=== PATIENT | male | born 1980 | race Caucasian/White ===

== ENCOUNTER 2020-03-18 22:09 | Emergency (ER) | payer OTHER, SELFPAY ==
[2020-03-18 22:19] VITALS: BP 134/99; PULSE 87; RESP 18; TEMP 36.8; O2SAT 100
--- NOTE | 2020-03-18 22:40 | ED.GENADULT ---
HPI - General Adult General Chief complaint: Psychiatric Symptoms <Miriam Fisher MD - Last Filed: 03/20/20:29> Stated complaint: suicidal <Miriam Fisher MD - Last Filed: 03/20/20:> Time Seen by Provider: 03/18/20 22:14 <Miriam Fisher MD - Last Filed: 03/20/20:29> Source: patient <Miriam Fisher MD - Last Filed: 03/20/20:29> History of Present Illness HPI narrative: Patient is a 39 y/o male complaining of suicidal ideation for last 2 weeks. He states that he feels helpless. He is more stressed because his mother is very sick and he is in a custody buck. He admits that he was drinking earlier today. He has no suicidal plan at this time. <Miriam Fisher MD - Last Filed: 03/20/20:29> Related Data Home medications: Home Medications Medication Instructions Recorded Confirmed duloxetine 60 mg PO DAILY 03/18/20 <Miriam Fisher MD - Last Filed: 03/20/20 07:29> Allergies/adverse reactions: Allergies Allergy/AdvReac Type Severity Reaction Status Date / Time No Known Allergies Allergy Verified 03/18/20 22:43 <Miriam Fisher MD - Last Filed: 03/20/20 07:29> Review of Systems Constitutional: Constitutional: Denies chills, Denies fever(s), Denies headache(s) and Denies weakness <Miriam Fisher MD - Last Filed: 03/20/20 07:29> Eyes: Eyes: Denies blurry vision <Miriam Fisher MD - Last Filed: 03/20/20 07:29> ENT: Denies headache(s) and Denies neck pain <Miriam Fisher MD - Last Filed: 03/20/20:29> Cardiovascular: Cardiovascular: Denies chest pain and Denies dyspnea <Miriam Fisher MD - Last Filed: 03/20/20 07:29> Respiratory: Respiratory: Denies cough and Denies dyspnea <Miriam Fisher MD - Last Filed: 10/01/20 07:29> Gastrointestinal: Gastrointestinal: Reports abdominal pain, Denies diarrhea, Reports nausea and Denies vomiting <Miriam Fisher MD - Last Filed: 03/20/20:> Genitourinary: Genitourinary: Denies hematuria and Denies dysuria <Miriam Fisher MD - Last Filed: 03/20/20:29> Musculoskeletal: Musculoskeletal: Denies back pain and Denies neck pain <Miriam Fisher MD - Last Filed: 03/20/20:> Neurologic: Denies headache(s) and Denies weakness <Miriam Fisher MD - Last Filed: 03/20/20:> Psychiatric: Psychiatric: Reports as per HPI, Reports depression and Reports suicidal ideation <Miriam Fisher MD - Last Filed: 03/20/20:> [facility] Social History Social History: Social History Gender identity (if verbalized by the patient): Male <Miriam Fisher MD - Last Filed: 03/20/20:29> Exam Const: General: no acute distress and well developed <Miriam Fisher MD - Last Filed: 03/20/20:> Orientation/consciousness: oriented to person, oriented to place, oriented to time and patient oriented x3 <Miriam Fisher MD - Last Filed: 03/20/20:29> HENMT: Head: normocephalic <Miriam Fisher MD - Last Filed: 03/20/20:29> Ears: external ears normal <Miriam Fisher MD - Last Filed: 03/20/20:29> General nose exam: Normal external nose present <Miriam Fisher MD - Last Filed: 03/20/20:> Eyes: General: appearance normal, both eyes and all related structures <Miriam Fisher MD - Last Filed: 03/20/20:29> Conjunctivae: conjunctivae normal <Miriam Fisher MD - Last Filed: 03/20/20:29> Neck: Neck: normal visual inspection and full ROM <Miriam Fisher MD - Last Filed: 03/20/20 07:29> Chest: Chest palpation & inspection: normal inspection of the chest and no tenderness <Miriam Fisher MD - Last Filed: 03/20/20 07:29> Resp: Effort & Inspection: normal respiratory effort <Miriam Fisher MD - Last Filed: 03/20/20 07:29> Auscultation: clear to auscultation bilaterally <Miriam Fisher MD - Last Filed: 03/20/20 07:29> Cardio: Rate: regular rate <Miriam Fisher MD - Last Filed: 03/20/20 07:29> Rhythm: regular rhythm <Miriam Fisher MD - Last Filed
--- NOTE | 2020-03-18 22:41 | PC.NURSE ---
Patient moved from room 5 to room 14 Report to Dalton ORDAZ
[2020-03-18 22:43] LABS: Basophils Percent Auto 0.6 % (0.2-1.2); Eosinophils Absolute Auto 0.1 K/mm3 (0-0.3); Hematocrit 48.7 % (42.0-52.0); Hemoglobin 16.8 g/dL (14.0-18.0); Immature Granulocyte Absolute 0.04 K/mm3 (0.00-0.031); Immature Granulocyte Percent A 0.6 % (0-0.5); Lymphocytes Absolute Auto 3.84 K/mm3 (0.9-3.2); Lymphocytes Percent Auto 54.6 % (18.3-44.2); Mean Corpuscular HGB Conc 34.5 g/dl (32-36); Mean Corpuscular Hemoglobin 29.4 pg (26-34); Mean Corpuscular Volume 85.1 fl (80-100); Mean Platelet Volume 8.7 fl (7.4-10.4); Monocytes Absolute Auto 0.5 K/mm3 (0.1-0.6); Monocytes Percent Auto 7.7 % (2.6-8.5); Neutrophils Absolute Auto 2.4 K/mm3 (1.3-6.7); Neutrophils Percent Auto 34.5 % (45.5-73.1); Platelet Count Result 310 k/mm3 (150-375); Red Blood Count 5.72 M/mm3 (4.6-6.20); Red Cell Distribution Width 12.4 % (11.5-14.5)
[2020-03-18 22:46] LABS: Add Urine Microscopic? YES; Appearance Urine Clear (Clear); Bacteria Urine Trace /hpf; Bilirubin Urine Negative (Negative); Blood Urine 1+ (Negative); Color Urine Straw (Yellow); Glucose Urine UA Negative (Negative); Ketones Urine Negative (Negative); Leukocyte Esterase Ur Negative LEU/UL (Negative); Nitrate Urine Negative (Negative); Protein Urine Negative (Negative); RBC Urine 0-2 /hpf (0-2); Squamous Epithelial Cell Urine Rare /hpf (Few); Urobilinogen Urine Negative mg/dL (<2.0); WBC Urine 0-3 /hpf
[2020-03-18] MEDS: ONDANSETRON HCL ODT 4 MG TABLET PO (22:49)
[2020-03-18 22:54] LABS: Ethanol 168 mg/dL (<10)
[2020-03-18 22:55] LABS: Alanine Aminotransferase 28 U/L (4-50); Alkaline Phosphatase 74 U/L (38-126); Anion Gap 15 mmol/L (8-16); Aspartate Amino Transferase 40 U/L (17-59); Bilirubin,Total 0.6 mg/dL (0.2-1.3); Blood Urea Nitrogen 9 mg/dL (9-20); Carbon Dioxide 24 mmol/L (22-30); Chloride 106 mmol/L (98-107); Estimated CRCL calculation 115 ml/min; Estimated Glomerular Filt Rate > 60; Glucose 88 mg/dL (75-110); Potassium 4.1 mmol/L (3.4-5.0); Sodium 145 mmol/L (137-145)
[2020-03-18 23:00] LABS: Amphetamine Screen Urine Negative (Negative); Barbiturate Screen Urine Negative (Negative); Benzodiazepines Screen Urine Negative (Negative); Cannabinoid Screen Urine Positive (Negative); Cocaine Screen Urine Negative (Negative); Methadone Screen Urine Negative (Negative); Opiate Screen Urine Negative (Negative); Phencyclidine Screen Urine Negative (Negative)
[2020-03-18 23:42] LABS: Lipase 823 U/L (23-300)
[2020-03-19 05:06] LABS: Ethanol 11 mg/dL (<10)
[2020-03-19 06:14] VITALS: BP 124/86; PULSE 78; RESP 16; TEMP 36.7; O2SAT 100
[2020-03-19 11:24] VITALS: BP 114/79; PULSE 86; RESP 12; TEMP 36.9; O2SAT 96
[2020-03-19 14:55] VITALS: BP 122/80; PULSE 80; RESP 18; TEMP 36.7; O2SAT 99
== END 2020-03-19 15:00 | disposition home or self-care (01) ==
PROVIDERS: Emergency Medicine; Emergency Provider Emergency Medicine
DX: R45.851 Suicidal ideations (principal); F10.129 Alcohol abuse with intoxication, unspecified; Y90.6 Blood alcohol level of 120-199 mg/100 ml
CPT/HCPCS: 36415; 80053; 80307; 81001; 83690; 84443; 85025; 99284; A9270

== ENCOUNTER 2021-08-09 08:09 | Emergency (ER) | payer OTHER, SELFPAY ==
[2021-08-09 08:12] VITALS: BP 156/96; PULSE 74; RESP 16; TEMP 36.6; O2SAT 100
--- NOTE | 2021-08-09 08:38 | ED.GENADULT ---
HPI - General Adult General Chief complaint: Unspecified Stated complaint: med refill Time Seen by Provider: 08/09/21 08:17 Source: patient, RN notes reviewed and old records reviewed Mode of arrival: ambulatory Limitations: no limitations History of Present Illness HPI narrative: This is a 41 year old male with history of anxiety who presents for evaluation for prescription refill. He has been taking Duloxetine for 5 years to treat his anxiety. He reports he ran out of his medication yesterday. He was given emergency 3 day prescription by his pharmacy on 08/05. He thought he had a refill to picking [facility] yesterday but his pharmacy reports his PCP wanted to see him before they would refill again. He is here to get a few days worth . He states he is feeling panicky due to withdrawals. He denies any other issues. He denies taking any other medications. Related Data Home Medications Medication Instructions Recorded Confirmed duloxetine 60 mg PO DAILY 03/18/20 Allergies Allergy/AdvReac Type Severity Reaction Status Date / Time No Known Allergies Allergy Verified 08/09/21 08:36 Review of Systems Review of Systems: All systems reviewed & are unremarkable except as noted in HPI and below PMFSH Past Medical History Medical History (Updated 08/09/21 @ 08:49 by Shanae Lopez MD) Anxiety Surgical History Surgical History (Updated 08/09/21 @ 08:43 by Shanae Lopez MD) No pertinent past surgical history Social History Social History (Updated 08/09/21 @ 08:43 by Shanae Lopez MD) Smoking status: Never smoker Alcohol intake: never Substance use type: marijuana Gender identity (if verbalized by the patient): Male Exam Narrative: GENERAL: Well-appearing, well-nourished, and in no acute distress. HEAD: Normocephalic, atraumatic NOSE: Nares clear, no rhinorrhea or epistaxis THROAT:Mucous membranes moist, Oropharynx normal without erythema, exudate, peritonsillar swelling or fluctuance NECK: Supple, without lymphadenopathy or mass RESPIRATORY: No respiratory distress, Airway patent, Respirations non-labored, Clear to auscultation without rales, rhonchi or wheeze HEART: Regular rate and rhythm. No murmur heard. Normal peripheral pulses. ABDOMEN: Soft, nontender, nondistended, normal active bowel sounds. No masses. No rebound or guarding, No organomegaly. EXTREMITIES: No edema, normal strength with full range of motion. SKIN: Warm, dry, normal color without rash NEURO: Alert and oriented x3. CN 2-12 grossly intact. No focal deficits. PSYCH: Normal mood and affect. Course Reevaluation(s) Reevaluation #1: I discussed with patient that I Will prescribed 3 days worth for his to get an appointment with his PCP to prevent withdrawals. Date: 08/09/21 Time: 08:44 Vital Signs Vital signs: Vital Signs Temperature 98 F 08/09/21 08:12 Pulse Rate 74 08/09/21 08:12 Respiratory Rate 16 08/09/21 08:12 Blood Pressure 156/96 H 08/09/21 08:12 Pulse Oximetry 100 08/09/21 08:12 Temperature 97.8 F 08/09/21 09:03 Pulse Rate 80 08/09/21 09:03 Respiratory Rate 14 08/09/21 09:03 Blood Pressure 151/88 H 08/09/21 09:03 Pulse Oximetry 99 08/09/21 09:03 Medical Decision Making Vital Signs Vital Signs: Vital Signs Temperature 98 F 08/09/21 08:12 Pulse Rate 74 08/09/21 08:12 Respiratory Rate 16 08/09/21 08:12 Blood Pressure 156/96 H 08/09/21 08:12 Pulse Oximetry 100 08/09/21 08:12 Temperature 97.8 F 08/09/21 09:03 Pulse Rate 80 08/09/21 09:03 Respiratory Rate 14 08/09/21 09:03 Blood Pressure 151/88 H 08/09/21 09:03 Pulse Oximetry 99 08/09/21 09:03 Discharge Plan Discharge Clinical Impression: Anxiety, Encounter for medication refill Patient Disposition: Home, Self-Care Condition: Stable Instructions: Antibiotic Form, Duloxetine (By mouth), Medicine Refill (ED) Additional Instructions: It is important that
[2021-08-09 09:03] VITALS: BP 151/88; PULSE 80; RESP 14; TEMP 36.6; O2SAT 99
== END 2021-08-09 09:04 | disposition home or self-care (01) ==
LOC: ANHED 08:57
PROVIDERS: Emergency Provider General Practice; PCP Internal Medicine Gastroenterology
DX: F41.9 Anxiety disorder, unspecified (principal)
CPT/HCPCS: 99283